=== PATIENT | female | born 1985 | race African-American/Black ===

== ENCOUNTER 2020-12-24 09:46 | Emergency (ER) | payer OTHER ==
[~2020-12-24] VITALS: Ht 167.6 cm; Wt 81.8 kg
[2020-12-24 09:58] VITALS: BP 116/81; Ht 167.6 cm; Wt 81.8 kg
[2020-12-24] MEDS ORDERED: ULTRAM50 MG PO (09:59)
[2020-12-24] MEDS ORDERED: METHOCARBAMOL500 MG PO (12:42)
== END 2020-12-24 12:52 | disposition home or self-care (01) ==
LOC: D.ER 09:46
DX: M25.551 Pain in right hip (principal); M25.552 Pain in left hip; S13.4XXA Sprain of ligaments of cervical spine, initial encounter; X58.XXXA Exposure to other specified factors, initial encounter